=== PATIENT | male | born 1935 | race Caucasian/White ===

== ENCOUNTER 2024-08-21 14:28 | Inpatient (IN) | payer OTHER ==
[2024-08-21] MEDS: SODIUM CHLORIDE 1,000 ML IV STA (15:15)
[2024-08-21 15:46] LABS: INR 1.16 (0.83-1.09)
[2024-08-21 15:47] LABS: EPI CELLS 12 /uL (0-25.1); HYALINE CASTS 1 /uL (0-3.1); PH,URINE 5.5 (5.0-8.0); URINE APPEARANCE CLEAR; URINE BACTERIA 13 /uL (0-1359); URINE BILIRUBIN NEGATIVE (NEGATIVE); URINE COLOR YELLOW; URINE GLUCOSE (UA) NEGATIVE (NEGATIVE); URINE KETONE NEGATIVE (NEGATIVE); URINE LEUK ESTERASE NEGATIVE (NEGATIVE); URINE NITRITE NEGATIVE (NEGATIVE); URINE PROTEIN TRACE (NEGATIVE); URINE RBC 93 /uL (0-23.9); URINE UROBILINOGEN 0.2 mg/dL (0.2-1.0); URINE WBC 15 /uL (0-25.8)
[2024-08-21 15:49] LABS: ACTIVATED PTT 31.5 SECONDS (25.2-36.5)
[2024-08-21 15:59] LABS: BASO % 0.8 % (0-2.0); HEMATOCRIT 29.5 % (35.4-49); LYMPH % 14.2 % (8-40); MCHC 30.3 g/dl (32.0-35.9); MEAN CELL VOLUME 65.2 fl (80-96); MEAN PLT VOLUME 8.8 fl (7.5-11.1); MONO % 13.2 % (3.8-10.2); NEUT % 70.8 % (42.8-82.8); PLATELET COUNT 251 10^3/uL (134-434); RBC 4.53 M/mm3 (4.00-5.60); WHITE BLOOD COUNT 8.9 K/mm3 (4.0-10.0)
[2024-08-21 16:00] LABS: MCH 19.8 pg (25.7-33.7)
[2024-08-21 16:01] LABS: POTASSIUM 4.4 mmol/L (3.5-5.1)
[2024-08-21 16:01] LABS: VENOUS BASE EXCESS -3.7 mmol/L (-2-2); VENOUS PCO2 45.7 mmHg (38-52); VENOUS PH 7.31 (7.310-7.410)
[2024-08-21 16:02] LABS: CALCIUM 8.9 mg/dL (8.5-10.1)
[2024-08-21 16:03] LABS: ALBUMIN 3.4 g/dl (3.4-5.0); BLOOD UREA NITROGEN 22.3 mg/dL (7-18)
[2024-08-21 16:06] LABS: CREATININE 1.5 mg/dL (0.55-1.3)
[2024-08-21 16:08] LABS: BILIRUBIN,TOTAL 0.8 mg/dL (0.2-1); TOT PROT 7.3 g/dl (6.4-8.2)
[2024-08-21 16:32] LABS: LACTIC ACID 3.8 mmol/L (0.4-2.0)
[2024-08-21 17:18] LABS: ANISOCYTOSIS 2+; MACROCYTOSIS 1+; OVALOCYTE 1+; TEAR DROP CELLS 1+
[2024-08-21 20:03] LABS: LACTIC ACID 3.1 mmol/L (0.4-2.0)
[2024-08-21] MEDS ORDERED: INSULIN (LEVEMIR) 100 UNITS/ML UNITS SQ ONE (22:29)
[2024-08-21] MEDS ORDERED: INSULIN ASPART SLIDING SCALE (NOVOLOG) 1 VIAL SQ ONE (22:29)
[2024-08-21] MEDS: INSULIN (LEVEMIR) 100 UNITS/ML UNITS SQ SCH (22:49)
[2024-08-21] MEDS: INSULIN ASPART SLIDING SCALE (NOVOLOG) 1 VIAL SQ SCH (22:49)
[2024-08-21] MEDS: SODIUM CHLORIDE 1,000 ML IV SCH (22:49)
[2024-08-21] MEDS ORDERED: CARVEDILOL 6.25 MG TABLET (FP) ONE (23:01)
[2024-08-21] MEDS: CARVEDILOL 6.25 MG TABLET (FP) PO SCH (23:05)
[2024-08-21 23:15] LABS: RETICULOCYTES 0.57 % (0.5-1.5)
[2024-08-22 06:49] VITALS: BMI 25.0
[2024-08-22] MEDS: AZITHROMYCIN IVPB 500 MG/250 ML BAG IVPB SCH (07:11)
[2024-08-22] MEDS: CEFTRIAXONE 1 G/50 ML PREMIX 50 ML IVPB SCH (08:02)
[2024-08-22] MEDS: TAMSULOSIN HCL 0.4 MG CAP PO SCH (08:07)
[2024-08-22] MEDS: FERROUS SO4 325 MG TABLET (FP) PO SCH (09:10)
[2024-08-22] MEDS: FINASTERIDE 5 MG TABLET (FP) PO SCH (09:10)
[2024-08-22 13:22] LABS: HEMATOCRIT 31.2 % (35.4-49); HEMOGLOBIN 9.3 GM/dL (11.7-16.9); MCHC 29.8 g/dl (32.0-35.9); MEAN CELL VOLUME 65.3 fl (80-96); MEAN PLT VOLUME 8.7 fl (7.5-11.1); PLATELET COUNT 226 10^3/uL (134-434); RBC 4.77 M/mm3 (4.00-5.60); RDW 21.8 % (11.9-15.9); WHITE BLOOD COUNT 7.3 K/mm3 (4.0-10.0)
[2024-08-22 13:24] LABS: MCH 19.5 pg (25.7-33.7)
[2024-08-22 13:58] LABS: ALBUMIN 3.4 g/dl (3.4-5.0); CALCIUM 8.3 mg/dL (8.5-10.1); MAGNESIUM 1.8 mg/dL (1.8-2.4)
[2024-08-22 13:59] LABS: BLOOD UREA NITROGEN 18.4 mg/dL (7-18)
[2024-08-22 14:01] LABS: CREATININE 1.1 mg/dL (0.55-1.3)
[2024-08-22 14:02] LABS: PHOSPHOROUS 2.4 mg/dL (2.5-4.9)
[2024-08-22 14:03] LABS: BILIRUBIN,TOTAL 0.5 mg/dL (0.2-1); TOT PROT 7.3 g/dl (6.4-8.2)
[2024-08-22 14:04] LABS: LACTIC ACID 3.2 mmol/L (0.4-2.0)
[2024-08-22] MEDS: FAMOTIDINE 20 MG TABLET PO SCH (21:37)
[2024-08-22] MEDS: ATORVASTATIN CA 80 MG TABLET (FP) PO SCH (21:37)
[2024-08-23 07:01] LABS: POTASSIUM 3.8 mmol/L (3.5-5.1)
[2024-08-23 07:05] LABS: BLOOD UREA NITROGEN 16.7 mg/dL (7-18); CALCIUM 8.6 mg/dL (8.5-10.1)
[2024-08-23 07:07] LABS: CREATININE 0.9 mg/dL (0.55-1.3); MAGNESIUM 1.9 mg/dL (1.8-2.4)
[2024-08-23 07:14] LABS: HEMOGLOBIN 8.8 GM/dL (11.7-16.9); MCHC 29.4 g/dl (32.0-35.9); MEAN CELL VOLUME 66.3 fl (80-96); MEAN PLT VOLUME 8.5 fl (7.5-11.1); MONO % 16.6 % (3.8-10.2); NEUT % 53.4 % (42.8-82.8); PLATELET COUNT 231 10^3/uL (134-434); RBC 4.53 M/mm3 (4.00-5.60); RDW 21.1 % (11.9-15.9); WHITE BLOOD COUNT 6.6 K/mm3 (4.0-10.0)
[2024-08-23 07:15] LABS: MCH 19.5 pg (25.7-33.7)
[2024-08-23] MEDS ORDERED: CARVEDILOL 6.25 MG TABLET (FP) PO SCH (17:25)
[2024-08-23] MEDS: CARVEDILOL 3.125 MG TABLET (FP) PO SCH (21:26)
[2024-08-24 06:32] LABS: BASO % 0.9 % (0-2.0); EOS % 4.6 % (0-4.5); HEMOGLOBIN 9.1 GM/dL (11.7-16.9); LYMPH % 31.4 % (8-40); MCHC 29.4 g/dl (32.0-35.9); MEAN CELL VOLUME 66.1 fl (80-96); MEAN PLT VOLUME 8.9 fl (7.5-11.1); MONO % 13.1 % (3.8-10.2); PLATELET COUNT 231 10^3/uL (134-434); RBC 4.69 M/mm3 (4.00-5.60); RDW 20.9 % (11.9-15.9); WHITE BLOOD COUNT 6.3 K/mm3 (4.0-10.0)
[2024-08-24 06:35] LABS: MCH 19.4 pg (25.7-33.7)
[2024-08-24 06:52] LABS: CALCIUM 8.8 mg/dL (8.5-10.1)
[2024-08-24 06:55] LABS: CREATININE 1.1 mg/dL (0.55-1.3)
[2024-08-24 06:57] LABS: BILIRUBIN,TOTAL 0.5 mg/dL (0.2-1); TOT PROT 6.5 g/dl (6.4-8.2)
[2024-08-24] MEDS ORDERED: INSULIN ASPART SLIDING SCALE (NOVOLOG) 1 VIAL SQ ONE (17:02)
[2024-08-25] MEDS: metoPROLOL SUCCINATE 25 MG TAB.SR.24H (FP) PO SCH (09:16)
[2024-08-25] MEDS: FERROUS SO4 325 MG TABLET (FP) PO SCH (21:59)
[2024-08-26 07:54] LABS: BASO % 0.8 % (0-2.0); EOS % 2.8 % (0-4.5); HEMATOCRIT 31.4 % (35.4-49); HEMOGLOBIN 9.2 GM/dL (11.7-16.9); LYMPH % 19.3 % (8-40); MCHC 29.4 g/dl (32.0-35.9); MEAN CELL VOLUME 66.5 fl (80-96); MEAN PLT VOLUME 8.9 fl (7.5-11.1); MONO % 10.4 % (3.8-10.2); NEUT % 66.7 % (42.8-82.8); PLATELET COUNT 238 10^3/uL (134-434); RBC 4.72 M/mm3 (4.00-5.60); RDW 21.9 % (11.9-15.9); WHITE BLOOD COUNT 8.7 K/mm3 (4.0-10.0)
[2024-08-26 07:59] LABS: MCH 19.6 pg (25.7-33.7)
[2024-08-26 08:02] LABS: POTASSIUM 4.2 mmol/L (3.5-5.1)
[2024-08-26 08:04] LABS: ALBUMIN 3.1 g/dl (3.4-5.0); BLOOD UREA NITROGEN 17.1 mg/dL (7-18); CALCIUM 8.3 mg/dL (8.5-10.1)
[2024-08-26 08:08] LABS: CREATININE 0.9 mg/dL (0.55-1.3)
[2024-08-26 08:09] LABS: BILIRUBIN,TOTAL 0.5 mg/dL (0.2-1); TOT PROT 6.6 g/dl (6.4-8.2)
[2024-08-26] MEDS: LEVOTHYROXINE NA 25 MCG TABLET (FP) PO SCH (08:20)
[2024-08-26 09:05] LABS: ANISOCYTOSIS 3+; MACROCYTOSIS 0; OVALOCYTE 1+
[2024-08-26] MEDS ORDERED: AZITHROMYCIN 250 MG TABLET PO SCH (10:00)
[2024-08-26 15:12] VITALS: BP 136/75; PULSE 58; RESP 18; TEMP 98.9
== END 2024-08-26 17:09 | disposition home or self-care (01) | DRG 82 ==
LOC: JER 14:28 → JERBED 20:01 → J2W 08-22 06:52 → OBSVTOIN 08-22 14:49 → J4W 08-25 00:56
PROVIDERS: ADMIT Internal Medicine; ATTEND Internal Medicine
DX: S06.6XAA Traumatic subarachnoid hemorrhage with loss of consciousness status unknown, initial encounter (principal); J18.9 Pneumonia, unspecified organism; E87.20 Acidosis, unspecified; I24.89 Other forms of acute ischemic heart disease; I48.91 Unspecified atrial fibrillation; I10 Essential (primary) hypertension; E78.5 Hyperlipidemia, unspecified; I25.10 Atherosclerotic heart disease of native coronary artery without angina pectoris; Z79.4 Long term (current) use of insulin; D50.9 Iron deficiency anemia, unspecified; E86.0 Dehydration; N40.0 Benign prostatic hyperplasia without lower urinary tract symptoms; E04.1 Nontoxic single thyroid nodule; E11.42 Type 2 diabetes mellitus with diabetic polyneuropathy; I95.1 Orthostatic hypotension; Y92.89 Other specified places as the place of occurrence of the external cause; T75.89XA Other specified effects of external causes, initial encounter; Y93.9 Activity, unspecified
CPT/HCPCS: 0241U-QW; 36415; 70450-TC; 70496-TC; 70498-TC; 70551-TC; 71045-TC-FY; 71250-TC; 80048; 80053; 81003; 82607; 82728; 82803; 82962; 83036; 83540; 83550; 83605; 83735; 84100; 84439; 84443; 84484; 85025; 85027; 85045; 85610; 85730; 86780; 86850; 86900; 86901; 87040; 87086; 93005; 93010; 93306-TC; 97116-GP; 97162-GP; 99285-25; G0378; Q9967

== ENCOUNTER 2025-07-09 13:06 | Observation (INO) | payer OTHER ==
[2025-07-09 14:02] LABS: BG HCT 41.0 % (35.4-49); VENOUS BASE EXCESS 2.7 mmol/L (-2-2); VENOUS O2 SATURATION 79.3 % (70-80); VENOUS PCO2 43.7 mmHg (38-52); VENOUS PH 7.419 (7.310-7.410)
[2025-07-09 14:08] LABS: ABSOLUTE IMMATURE GRANULOCYTES 0.02 x10^3/uL (0.0-0.031); BASOPHILS # 0.05 x10^3/uL (0.01-0.08); EOSINOPHIL % 0.6 % (0.8-7.0); EOSINOPHILS # 0.04 x10^3/uL (0.04-0.54); MCHC 30.4 g/dl (32.3-36.5); MEAN CELL VOLUME 86.4 fl (79.0-92.2); MEAN PLT VOLUME 11.2 fl (9.4-12.4); MONOCYTE # 0.82 x10^3/uL (0.30-0.82); MONOCYTE % 12.3 % (5.3-12.2); RDW 16.9 % (12.6-16.6)
[2025-07-09 14:16] LABS: GLUCOSE,RANDOM 133.0 mg/dL (74-106); TOT PROT 7.9 g/dl (6.4-8.2)
[2025-07-09 14:17] LABS: CO2 30.0 mmol/L (21-32)
[2025-07-09 14:19] LABS: ALK PHOS 74.0 U/L (40-150)
[2025-07-09 14:21] LABS: SGPT/ALT 15.0 U/L (0-55)
[2025-07-09 14:22] LABS: CREATININE 1.21 mg/dL (0.55-1.3); SGOT/AST 22.0 U/L (5-34)
[2025-07-09 14:42] LABS: HCV DIAGNOSTIC IN-HOUSE W/RFLX NON-REACTIVE (NONREACTIVE); HIV INTERPRETATION NEGATIVE (NEGATIVE)
[2025-07-09 16:05] LABS: EPI CELLS 5 /uL (0-25.1); HYALINE CASTS 0 /uL (0-3.1); URINE APPEARANCE CLEAR; URINE BACTERIA 21 /uL (0-1359); URINE BILIRUBIN NEGATIVE (NEGATIVE); URINE COLOR YELLOW; URINE GLUCOSE (UA) NEGATIVE (NEGATIVE); URINE KETONE 1+ (NEGATIVE); URINE LEUK ESTERASE NEGATIVE (NEGATIVE); URINE NITRITE NEGATIVE (NEGATIVE); URINE PROTEIN 2+ (NEGATIVE); URINE RBC 171 /uL (0-23.9); URINE UROBILINOGEN 1.0 mg/dL (0.2-1.0); URINE WBC 4 /uL (0-25.8)
[2025-07-09] MEDS ORDERED: FUROSEMIDE 40 MG/4 ML INJECTABLE VIAL ONE (18:29)
[2025-07-09] MEDS: LACTATED RINGERS SOLUTION 1000 ML INFUS.BAG IV ONE (18:35)
[2025-07-09] MEDS: FUROSEMIDE 40 MG/4 ML INJECTABLE VIAL IVPUSH ONE (18:36)
[2025-07-09 22:27] VITALS: BMI 23.7
[2025-07-10] MEDS: ENOXAPARIN NA (PORCINE) 60 MG/0.6 ML DISP.SYRIN SQ SCH (01:15)
[2025-07-10] MEDS: INSULIN ASPART SLIDING SCALE (NOVOLOG) 1 VIAL SQ SCH (01:20)
[2025-07-10] MEDS: LEVOTHYROXINE NA 25 MCG TABLET (FP) PO SCH (06:16)
[2025-07-10 08:35] LABS: ABSOLUTE IMMATURE GRANULOCYTES 0.02 x10^3/uL (0.0-0.031); BASOPHILS # 0.06 x10^3/uL (0.01-0.08); EOSINOPHIL % 0.6 % (0.8-7.0); EOSINOPHILS # 0.05 x10^3/uL (0.04-0.54); MCHC 30.2 g/dl (32.3-36.5); MEAN CELL VOLUME 86.3 fl (79.0-92.2); MEAN PLT VOLUME 10.7 fl (9.4-12.4); MONOCYTE # 1.03 x10^3/uL (0.30-0.82); MONOCYTE % 13.4 % (5.3-12.2); RDW 16.5 % (12.6-16.6)
[2025-07-10 09:40] LABS: GLUCOSE,RANDOM 143 mg/dL (74-106); TOT PROT 8.1 g/dl (6.4-8.2)
[2025-07-10 09:41] LABS: CO2 28 mmol/L (21-32)
[2025-07-10 09:42] LABS: ALK PHOS 77 U/L (40-150)
[2025-07-10 09:45] LABS: CREATININE 1.07 mg/dL (0.55-1.3); SGOT/AST 25 U/L (5-34)
[2025-07-10 09:52] LABS: GLUCOSE,RANDOM 148.0 mg/dL (74-106)
[2025-07-10 09:54] LABS: CO2 28.0 mmol/L (21-32)
[2025-07-10] MEDS: FUROSEMIDE 40 MG TABLET (FP) PO SCH (09:57)
[2025-07-10] MEDS: RANOLAZINE E.R. 500 MG TABLET (FP) PO SCH (09:57)
[2025-07-10] MEDS: METOPROLOL TARTRATE 25 MG TABLET (FP) PO SCH (09:57)
[2025-07-10] MEDS: LOSARTAN POTASSIUM 25 MG TABLET PO SCH (09:57)
[2025-07-10 09:58] LABS: CREATININE 1.07 mg/dL (0.55-1.3)
[2025-07-10 10:28] LABS: SGPT/ALT < 6 U/L (0-55)
[2025-07-10] MEDS: FUROSEMIDE 40 MG/4 ML INJECTABLE VIAL IVPUSH ONE (17:10)
[2025-07-10] MEDS: DONEPEZIL HCL 5 MG TABLET (FP) PO SCH (21:45)
[2025-07-10] MEDS: FAMOTIDINE 20 MG TABLET PO SCH (21:46)
[2025-07-10] MEDS: ATORVASTATIN CA 80 MG TABLET (FP) PO SCH (21:46)
[2025-07-11 09:10] LABS: ABSOLUTE IMMATURE GRANULOCYTES 0.02 x10^3/uL (0.0-0.031); BASOPHILS # 0.07 x10^3/uL (0.01-0.08); EOSINOPHIL % 2.4 % (0.8-7.0); EOSINOPHILS # 0.16 x10^3/uL (0.04-0.54); MCHC 29.6 g/dl (32.3-36.5); MEAN CELL VOLUME 87.6 fl (79.0-92.2); MEAN PLT VOLUME 11.6 fl (9.4-12.4); MONOCYTE # 0.91 x10^3/uL (0.30-0.82); MONOCYTE % 13.8 % (5.3-12.2); RDW 16.7 % (12.6-16.6)
[2025-07-11 09:57] LABS: GLUCOSE,RANDOM 126.0 mg/dL (74-106); TOT PROT 7.4 g/dl (6.4-8.2)
[2025-07-11 09:58] LABS: CO2 24.0 mmol/L (21-32)
[2025-07-11 10:00] LABS: ALK PHOS 67.0 U/L (40-150)
[2025-07-11 10:03] LABS: CREATININE 1.27 mg/dL (0.55-1.3); SGOT/AST 25.0 U/L (5-34); SGPT/ALT 7.0 U/L (0-55)
[2025-07-13] MEDS: SODIUM CHLORIDE 250 ML IV SCH (01:15)
[2025-07-13] MEDS: MIDODRINE HCL 5 MG TABLET PO ONE (01:24)
[2025-07-13 09:10] LABS: ABSOLUTE IMMATURE GRANULOCYTES 0.03 x10^3/uL (0.0-0.031); BASOPHILS # 0.03 x10^3/uL (0.01-0.08); EOSINOPHIL % 2.8 % (0.8-7.0); EOSINOPHILS # 0.17 x10^3/uL (0.04-0.54); MCHC 29.9 g/dl (32.3-36.5); MEAN CELL VOLUME 87.8 fl (79.0-92.2); MEAN PLT VOLUME 11.4 fl (9.4-12.4); MONOCYTE # 0.88 x10^3/uL (0.30-0.82); MONOCYTE % 14.3 % (5.3-12.2); RDW 16.8 % (12.6-16.6)
[2025-07-13 11:54] LABS: GLUCOSE,RANDOM 122.0 mg/dL (74-106); TOT PROT 7.2 g/dl (6.4-8.2)
[2025-07-13 11:55] LABS: CO2 22.0 mmol/L (21-32)
[2025-07-13 11:57] LABS: ALK PHOS 67.0 U/L (40-150)
[2025-07-13 11:59] LABS: SGOT/AST 50.0 U/L (5-34); SGPT/ALT 13.0 U/L (0-55)
[2025-07-13 12:00] LABS: CREATININE 1.28 mg/dL (0.55-1.3)
[2025-07-13 18:08] VITALS: RESP 18
[2025-07-14 07:36] LABS: ABSOLUTE IMMATURE GRANULOCYTES 0.02 x10^3/uL (0.0-0.031); BASOPHILS # 0.05 x10^3/uL (0.01-0.08); EOSINOPHIL % 2.4 % (0.8-7.0); EOSINOPHILS # 0.16 x10^3/uL (0.04-0.54); MCHC 30.0 g/dl (32.3-36.5); MEAN CELL VOLUME 87.1 fl (79.0-92.2); MEAN PLT VOLUME 11.6 fl (9.4-12.4); MONOCYTE # 0.91 x10^3/uL (0.30-0.82); MONOCYTE % 13.5 % (5.3-12.2); RDW 16.9 % (12.6-16.6)
[2025-07-14 07:47] LABS: GLUCOSE,RANDOM 117.0 mg/dL (74-106); TOT PROT 7.0 g/dl (6.4-8.2)
[2025-07-14 07:48] LABS: CO2 26.0 mmol/L (21-32)
[2025-07-14 07:50] LABS: ALK PHOS 65.0 U/L (40-150)
[2025-07-14 07:52] LABS: SGOT/AST 57.0 U/L (5-34); SGPT/ALT 25.0 U/L (0-55)
[2025-07-14 07:53] LABS: CREATININE 1.39 mg/dL (0.55-1.3)
[2025-07-14 09:10] VITALS: BP 106/65; PULSE 73; TEMP 97.7
== END 2025-07-14 15:20 | disposition home or self-care (01) ==
LOC: JER 13:06 → JERBED 20:17 → J6W TELE 21:48
PROVIDERS: ADMIT Internal Medicine; ATTEND Internal Medicine
PROC: 3E033GC Introduction of Other Therapeutic Substance into Peripheral Vein, Percutaneous Approach (ICD-10-PCS; principal; 2025-07-09)
PROC: 3E013VG Introduction of Insulin into Subcutaneous Tissue, Percutaneous Approach (ICD-10-PCS; 2025-07-09)
PROC: 3E033GC Introduction of Other Therapeutic Substance into Peripheral Vein, Percutaneous Approach (ICD-10-PCS; 2025-07-09)
DX: I50.23 Acute on chronic systolic (congestive) heart failure (principal); R77.8 Other specified abnormalities of plasma proteins; R79.89 Other specified abnormal findings of blood chemistry; R31.29 Other microscopic hematuria; R06.00 Dyspnea, unspecified; E11.9 Type 2 diabetes mellitus without complications; I71.40 Abdominal aortic aneurysm, without rupture, unspecified; F02.80 Dementia in other diseases classified elsewhere, unspecified severity, without behavioral disturbance, psychotic disturbance, mood disturbance, and anxiety; N32.9 Bladder disorder, unspecified; G30.9 Alzheimer's disease, unspecified; D50.9 Iron deficiency anemia, unspecified; I82.419 Acute embolism and thrombosis of unspecified femoral vein; R41.82 Altered mental status, unspecified; Z95.1 Presence of aortocoronary bypass graft; I25.110 Atherosclerotic heart disease of native coronary artery with unstable angina pectoris; R60.0 Localized edema
CPT/HCPCS: 36415; 70450-TC; 71045-TC-FY; 71275-TC; 76775-TC; 76856-TC; 80048; 80053; 81003; 82248; 82803; 82962; 83036; 83605; 83735; 83880; 84100; 84443; 84484; 85025; 85379; 86140; 86803; 87040; 87086; 87389; 87637-QW; 87899; 93005; 93010; 93306-TC; 93971-TC-RT; 96365; 96368; 96372; 96375; 96376; 97116-GP; 97161-GP; 99285-25; G0378; Q9967